=== PATIENT | female | born 1990 | race Caucasian/White ===

== ENCOUNTER 2018-08-16 13:12 | Emergency (ER) | payer OTHER ==
[~2018-08-16] VITALS: Ht 157.5 cm; Wt 49.9 kg
[2018-08-16 13:14] VITALS: BP 156/68
--- NOTE | 2018-08-16 13:20 | NUR ---
PATIENT AMBULATED TO ER BED 3.
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
--- NOTE | 2018-08-16 13:27 | NUR ---
PT BEING SEEN BY DR. ZAMORA.
[2018-08-16 14:32] VITALS: BP 128/85
--- NOTE | 2018-08-16 14:33 | NUR ---
PT LEFT WITHOUT DISCHARGE INSTRUCTION.
== END 2018-08-16 14:33 | disposition home or self-care (01) ==
LOC: MED 13:12
DX: F41.1 Generalized anxiety disorder (principal); F43.0 Acute stress reaction; E07.9 Disorder of thyroid, unspecified
CPT/HCPCS: 93005; 99284